=== PATIENT | female | born 1965 | race Caucasian/White ===

== ENCOUNTER 2018-12-26 22:26 | Inpatient (IN) | payer OTHER ==
[~2018-12-26] VITALS: Ht 167.6 cm; Wt 74.3 kg
[2018-12-27 00:30] VITALS: BP 172/84; PULSE 94; RESP 18
[2018-12-27 00:50] VITALS: Ht 167.6 cm; Wt 74.3 kg
[2018-12-27] MEDS ORDERED: NACL 0.9% 3 ML SYG IV SCH (01:00)
[2018-12-27] MEDS ORDERED: ONDANSETRON 4 MG INJ IV PRN (01:00)
--- NOTE | 2018-12-27 01:04 | HP ---
Date/Time of Note Date/Time of Note DATE: 12/27/18 TIME: 00:55 Assessment/Plan VTE Prophylaxis SCD applied (from Nsg): Yes Pharmacological prophylaxis: NA/contraindicated Pharm contraindication: low risk/ambulating Lines/Catheters IV Catheter Type (from Nrsg): Saline Lock Assessment/Plan Assessment/Plan 53 yo woman with dyslipidemia presents with fevers and hyponatremia #Fever #Cough - Likely developed a viral bronchitis - Influenza negative - Blood cultures drawn at [place], will have to call to followup cultures. - CXR without infiltrates. Clinically does not appear to be pneumonia. - Supportive care #Hyponatremia - Likely from high fever causing insensible free water losses - Resume diet, got bolused in ED, recheck BMP in AM #Dental abscess - For now, ordered IV Unasyn - Dental appointment on Wednesday 12/27. DVT: SCDs GI: None HPI/ROS Admit Date/Time Admit Date/Time Dec 27, 2018 at 00:06 Hx of Present Illness Ms. Ortiz is a 53 yo woman with no major PMH transferred here from [place] with fevers. She was in her usual state of health until about a week ago, when she developed bilateral lower jaw toothache. She made an appointment with her dentist for this Thursday 12/28. On Friday (2 days [employer]) she developed fatigue and whole body aches. On Friday s he had subjective fevers at home and cough with scant sputum production. She presented to [place] ED. On arrival she was febrile to 40.2C, tachy to 107, BP 138/87, sat 95% on room air. Labs notable for hyponatremia to 130, no leukocytosis. Influenza negative. CXR negative for infiltrates. ROS She denies recent night sweats, anorexia, weight loss, dyspnea, runny nose, sore throat, dysphagia, chest pain/pressure/palpitations, nausea, vomiting, abdominal pain, diarrhea, constipation, dysuria, hematuria. PMH/Family/Social Past Medical History Dyslipidemia, not taking any medications. Medications Current Medications IV Flush (NS 3 ml) 3 ml PER PROTOCOL IV ; Start 12/27/18 at 01:00; Status UNV Ondansetron HCl (Zofran Inj) 4 mg Q6H PRN IV NAUSEA/VOMITING; Start 12/27/18 at 01:00; Status UNV Acetaminophen (Tylenol Tab) 650 mg Q6H PRN PO .PAIN 1-3 OR TEMP; Start 12/27/18 at 01:00; Status UNV Coded Allergies: No Known Allergy (Unverified , 12/27/18) Past Surgical History Past Surgical Hx: no surgical history Social History Alcohol Use: none Smoking Status: Never smoker Drug Use: none Exam/Review of Systems Exam Exam Gen: Well developed woman awake and alert, uncomfortable appearing. Eyes: PERRL, no icterus HEENT: Moist mucous membranes, clear oropharynx. Left lower molar loose and tender to palpation. No cheek or jaw swelling. Neck: Supple, no lymphadenopathy, no JVD Card: Regular rate and rhythm, no murmur. Pulm: Clear to auscultation bilaterally Abd: Soft, nondistended. Nontender to palpation. No hepatosplenomegaly. Ext: No cyanosis/clubbing/edema, good peripheral pulses. Skin: warm, dry, well perfused. OLGA HOOD MD Dec 27, 2018 01:04
[2018-12-27] MEDS: ACETAMINOPHEN 325 MG TAB PO PRN ×4 (01:15→23:39)
[2018-12-27] MEDS: AMPICILLIN/SULB 3 GM/NS (PMX) 100 ML IVPB SCH ×5 (01:17→23:40)
[2018-12-27 02:00] VITALS: BP 131/60; PULSE 97; RESP 18
[2018-12-27 08:13] VITALS: BP 142/65; PULSE 98; RESP 18
--- NOTE | 2018-12-27 09:29 | PN ---
Date/Time of Note Date/Time of Note DATE: 12/27/18 TIME: 09:27 Assessment/Plan VTE Prophylaxis SCD applied (from Nsg): Yes Pharmacological prophylaxis: heparin Lines/Catheters IV Catheter Type (from Nrsg): Saline Lock Urinary Cath still in place: No Assessment/Plan Problems: (1) Febrile Status: Acute Comment: She is on antibiotics and her fever curve is coming down. Her peak fever was 40 C in the emergency room at [facility]. Trying to get the results of the cultures from them. In the meantime continue treatment Qualifiers: Fever type: due to other condition Qualified Codes: R50.81 - Fever pres enting with conditions classified elsewhere (2) Dental abscess Status: Acute Comment: On aggressive IV antibiotics. Please note I am going to check an echocardiogram just to be safe (3) Hyperlipidemia Status: Chronic Comment: Noted. Qualifiers: Hyperlipidemia type: pure hypercholesterolemia Qualified Codes: E78.00 - Pure hypercholesterolemia, unspecified (4) Abnormal liver function tests Comment: Duration of this is unknown. Wall is most likely just to be due to the infection need to go ahead and check hepatitis serologies as per NIH guidelines Result Diagram: 12/27/187 12/27/187 Results 24hrs Laboratory Tests Test 12/27/18 04:47 White Blood Count 6.8 Red Blood Count 4.16 L Hemoglobin 12.0 Hematocrit 36.1 L Mean Corpuscular Volume 86.8 Mean Corpuscular Hemoglobin 28.8 L Mean Corpuscular Hemoglobin Concent 33.2 Red Cell Distribution Width 12.9 Platelet Count 135 L Mean Platelet Volume 12.2 H Immature Granulocytes % 0.400 Neutrophils % 68.4 Lymphocytes % 23.4 Monocytes % 7.5 Eosinophils % 0.0 Basophils % 0.3 Nucleated Red Blood Cells % 0.0 Immature Granulocytes # 0.030 Neutrophils # 4.6 Lymphocytes # 1.6 Monocytes # 0.5 Eosinophils # 0.0 Basophils # 0.0 Nucleated Red Blood Cells # 0.0 Sodium Level 141 Potassium Level 3.9 Chloride Level 109 Carbon Dioxide Level 26 Anion Gap 6 Blood Urea Nitrogen 10 Creatinine 0.70 Est Glomerular Filtrat Rate mL/min > 60 Glucose Level 121 Calcium Level 8.3 L Phosphorus Level 3.1 Magnesium Level 2.3 Total Bilirubin 0.6 Direct Bilirubin 0.00 Indirect Bilirubin 0.6 Aspartate Amino Transf (AST/SGOT) 60 H Alanine Aminotransferase (ALT/SGPT) 47 Alkaline Phosphatase 123 H Total Protein 6.6 Albumin 3.6 Globulin 3.00 Albumin/Globulin Ratio 1.20 Thyroid Stimulating Hormone (TSH) 0.525 Subjective 24 Hr Interval Summary Free Text/Dictation Patient reports she is feeling poorly, and still has significant lower jaw pain Constitutional: febrile (Fever without shaking chills or drenching sweats) ENT: other (Dental pain) Respiratory: no complaints Cardiovascular: no complaints Gastrointestinal: no complaints Exam/Review of Systems Exam Vitals Vital Signs Date Temp Pulse Resp B/P (MAP) Pulse Ox O2 O2 Flow FiO2 Time Delivery Rate 12/27/18 100.9 09:15 12/27/18 98 18 142/65 92 Room Air 08:13 (90) Intake and Output 12/26/18 12/26/18 12/27/18 1515:00 23:00 07:00 IntakeIntake Total 1000 ml BalanceBalance 1000 ml Exam Ill-appearing female lying in bed Constitutional: alert ENMT: other (Lower jaw dental abscess in the molar) Respiratory: clear to auscultation, normal air movement Cardiovascular: regular rate and rhythm, nl pulses, other (I do not appreciate a murmur, but will check into it) Gastrointestinal: soft, nl liver, spleen, non-tender Results Results 24hrs Laboratory Tests Test 12/27/18 04:47 White Blood Count 6.8 Red Blood Count 4.16 L Hemoglobin 12.0 Hematocrit 36.1 L Mean Corpuscular Volume 86.8 Mean Corpuscular Hemoglobin 28.8 L Mean Corpuscular Hemoglobin Concent 33.2 Red Cell Distribution Width 12.9 Platelet Count 135 L Mean Platelet Volume 12.2 H Immature Granulocytes % 0.400 Neutrophils % 68.4 Lymphocytes % 23.4 Monocytes % 7.5 Eosinophils % 0.0 Basophils % 0.3 Nucleated Red Blood Cells % 0.0 Immature Granulocytes # 0.030 Neutrophils # 4.6 Lymphocytes # 1.6 Monocytes # 0.5 Eosinophils # 0.0 Basophils # 0.0 Nucleated Red Blood Cells # 0.0 Sodium Level 141 Potassium Level 3.9 Chloride Level 109 Carbon Dioxide Level 26 Anion Gap 6 Blood Urea Nitrogen 10 Creatinine 0.70 Est Glomerular Filtrat Rate mL/min > 60 Glucose Level 121 Calcium Level 8.3 L Phosphorus Level 3.1 Magnesium Level 2.3 Total Bilirubin 0.6 Direct Bilirubin 0.00 Indirect Bilirubin 0.6 Aspartate Amino Transf (AST/SGOT) 60 H Alanine Aminotransferase (ALT/SGPT) 47 Alkaline Phosphatase 123 H Total Protein 6.6 Albumin 3.6 Globulin 3.00 Albumin/Globulin Ratio 1.20 Thyroid Stimulating Hormone (TSH) 0.525 Medications Medication Current Medications IV Flush (NS 3 ml) 3 ml PER PROTOCOL IV ; Start 12/27/18 at 01:00 Ondansetron HCl (Zofran Inj) 4 mg Q6H PRN IV NAUSEA/VOMITING; Start 12/27/18 at 01:00 Acetaminophen (Tylenol Tab) 650 mg Q6H PRN PO .PAIN 1-3 OR TEMP Last administered on 12/27/18at 09:15; Admin Dose 650 MG; Start 12/27/18 at 01:00 Ampicillin Sodium/ Sulbactam Sodium 100 ml @ 100 mls/hr Q6 IVPB Last administered on 12/27/18at 06:13; Admin Dose 100 MLS/HR; Start 12/27/18 at 01:00 LATRICE OLMEDO MD Dec 27, 2018 09:29
[2018-12-27 14:48] VITALS: BP 132/69; PULSE 89; RESP 18
[2018-12-27 20:00] VITALS: BP 135/66; PULSE 88; RESP 18
[2018-12-28 00:38] VITALS: BP 138/67; PULSE 94; RESP 18
[2018-12-28 02:00] VITALS: BP 112/62; PULSE 84; RESP 18
[2018-12-28] MEDS: AMPICILLIN/SULB 3 GM/NS (PMX) 100 ML IVPB SCH ×4 (05:16→23:49)
[2018-12-28] MEDS: ACETAMINOPHEN 325 MG TAB PO PRN (06:01)
[2018-12-28 07:50] VITALS: BP 122/59; PULSE 81; RESP 20
--- NOTE | 2018-12-28 12:31 | PN ---
Date/Time of Note Date/Time of Note DATE: 12/28/18 TIME: 12:29 Assessment/Plan VTE Prophylaxis Risk score (from Ns)>0 risk: 1 SCD applied (from Ns): No SCD contraindicated: other Pharmacological prophylaxis: NA/contraindicated Pharm contraindication: low risk/ambulating Lines/Catheters IV [facility] Type [facility]from [facility] Saline Lock Urinary Cath still in place: No Assessment/Plan Hospital Course SUBJECTIVE: Lying in bed. Patient had fevers at night. Still having cough but improved. OBJECTIVE: Vital signs-see below PHYSICAL EXAM: Constitutional: Adequately built,not in acute distress. HEENT: Head atraumatic and normocephalic. Eyes: Extraocular muscles intact. Anicteric sclerae. Pupils equal bilaterally, reactive to light. NECK: Supple without lymph node. CHEST: Clear and good breath sounds equally. No wheezing. No rhonchi. HEART: S1, S2. Regular rate and rhythm. ABDOMEN: Soft/non tender with no rebound tenderness. Bowel sounds were present. EXTREMITIES: No cyanosis, clubbing or edema. NEUROLOGIC: Alert and oriented x3. No focal deficit. No sensory deficit. PSYCHOSOCIAL: No signs of depression. INTEGUMENTARY: No open wounds. ASSESSMENT AND PLAN:53 yo woman with dyslipidemia, dentala abscess presents with fevers/cough.. #Fever/Cough - Likely bronchitis - F/U Blood cultures drawn at [place] - Add Azithromycin 500x3 days -Repeat Xray #Dental abscess - For now,cont. IV Unasyn - pt to reschedule Dental appointment after DC DVT: SCDs GI: None Robi Disposition: Follow-up blood cultures from [facility]. DC planning in a.m. possibly on Augmentin. Patient is seen in collaboration with Dr. Cespedes. Result Diagram: 12/27/1844612/27/18446 Exam/Review of Systems Exam Vitals Vital Signs Date Temp Pulse Resp B/P (MAP) Pulse Ox O2 O2 Flow FiO2 Time Delivery Rate 12/28/18 98.7 81 20 122/59 91 Room Air 07:50 (80) Intake and Output 12/27/18 12/27/18 12/28/18 1515:00 23:00 07:00 IntakeIntake Total 700 ml 340 ml 200 ml BalanceBalance 700 ml 340 ml 200 ml Medications Medication Current Medications IV Flush (NS 3 ml) 3 ml PER PROTOCOL IV ; Start 12/27/18 at 01:00 Ondansetron HCl (Zofran Inj) 4 mg Q6H PRN IV NAUSEA/VOMITING; Start 12/27/18 at 01:00 Acetaminophen (Tylenol Tab) 650 mg Q6H PRN PO .PAIN 1-3 OR TEMP Last administered on 12/28/18at 06:01; Admin Dose 650 MG; Start 12/27/18 at 01:00 Ampicillin Sodium/ Sulbactam Sodium 100 ml @ 100 mls/hr Q6 IVPB Last administered on 12/28/18at 12:00; Admin Dose 100 MLS/HR; Start 12/27/18 at 01:00 DUSTIN AVILA NP Dec 28, 2018 12:31
[2018-12-28] MEDS: AZITHROMYCIN 500 MG TAB PO SCH (13:16)
[2018-12-28] MEDS ORDERED: IBUPROFEN 400 MG TAB PO ONE (13:30)
[2018-12-28] MEDS ORDERED: AZITHROMYCIN 250 MG TAB PO SCH (13:30)
[2018-12-28 14:21] VITALS: BP 134/74; PULSE 94; RESP 20
[2018-12-28] MEDS: IBUPROFEN 400 MG TAB PO PRN (20:48)
[2018-12-28 21:03] VITALS: BP 128/67; PULSE 85; RESP 18
[2018-12-29 02:12] VITALS: BP 116/55; PULSE 80; RESP 18
[2018-12-29] MEDS: IBUPROFEN 400 MG TAB PO PRN (03:26)
[2018-12-29] MEDS: AMPICILLIN/SULB 3 GM/NS (PMX) 100 ML IVPB SCH (05:43)
[2018-12-29 07:47] VITALS: BP 122/71; PULSE 78; RESP 18
[2018-12-29] MEDS: AZITHROMYCIN 500 MG TAB PO SCH (09:16)
--- NOTE | 2018-12-29 10:39 | PN ---
Date/Time of Note Date/Time of Note DATE: 12/29/18 TIME: 10:36 Assessment/Plan VTE Prophylaxis Risk score (from Ns)>0 risk: 1 SCD applied (from Ns): Yes Pharmacological prophylaxis: NA/contraindicated Pharm contraindication: low risk/ambulating Lines/Catheters IV [facility] Type [facility]from [facility] Saline Lock Urinary Cath still in place: No Assessment/Plan Hospital Course SUBJECTIVE: Patient still had low-grade fevers overnight. She received Motrin and Tylenol at night. Having nonproductive cough. OBJECTIVE: Vital signs-see below PHYSICAL EXAM: Constitutional: Adequately built,not in acute distress. HEENT: Head atraumatic and normocephalic. Eyes: Extraocular muscles intact. Anicteric sclerae. Pupils equal bilaterally, reactive to light. NECK: Supple without lymph node. CHEST: Clear and good breath sounds equally. No wheezing. No rhonchi. HEART: S1, S2. Regular rate and rhythm. ABDOMEN: Soft/non tender with no rebound tenderness. Bowel sounds were present. EXTREMITIES: No cyanosis, clubbing or edema. NEUROLOGIC: Alert and oriented x3. No focal deficit. No sensory deficit. PSYCHOSOCIAL: No signs of depression. INTEGUMENTARY: No open wounds. ASSESSMENT AND PLAN:53 yo woman with dyslipidemia, dentala abscess presents with fevers/cough.. #Community-acquired pneumonia -Patient now has clinical and radiographic symptoms suggestive of pneumonia -Currently on Unasyn and azithromycin. I will request ID consult for more appropriate antimicrobial coverage in the setting that patient continued to have fevers and chest x-ray shows developing right-sided pneumonia. -OSH BC ~NGTD #Dental abscess - For now,cont. IV Unasyn - pt to reschedule Dental appointment after DC DVT: SCDs GI: None Robi Disposition: Patient continues to have low-grade fevers at night. X-ray shows developing right-sided pneumonia. At this time, I will keep patient another 24 hours in-house with ID consultation. Patient is seen in collaboration with Dr. Cespedes. Result Diagram: 12/27/1844612/27/18446 Exam/Review of Systems Exam Vitals Vital Signs Date Temp Pulse Resp B/P (MAP) Pulse Ox O2 O2 Flow FiO2 Time Delivery Rate 12/29/18 98.9 78 18 122/71 92 07:47 (88) 12/28/18 Room Air 14:21 Intake and Output 12/28/18 12/28/18 12/29/18 1515:00 23:00 07:00 IntakeIntake Total 460 ml 820 ml 440 ml OutputOutput Total 1 ml BalanceBalance 460 ml 819 ml 440 ml Medications Medication Current Medications IV Flush (NS 3 ml) 3 ml PER PROTOCOL IV ; Start 12/27/18 at 01:00 Ondansetron HCl (Zofran Inj) 4 mg Q6H PRN IV NAUSEA/VOMITING; Start 12/27/18 at 01:00 Acetaminophen (Tylenol Tab) 650 mg Q6H PRN PO .PAIN 1-3 OR TEMP Last administered on 12/28/18at 06:01; Admin Dose 650 MG; Start 12/27/18 at 01:00 Ampicillin Sodium/ Sulbactam Sodium 100 ml @ 100 mls/hr Q6 IVPB Last administered on 12/29/18at 05:43; Admin Dose 100 MLS/HR; Start 12/27/18 at 01:00 Ibuprofen (Motrin) 400 mg Q6H PRN PO MILD PAIN(1-3) OR TEMP>38C Last administered on 12/29/18at 03:26; Admin Dose 400 MG; Start 12/28/18 at 12:30 Azithromycin (Zithromax) 500 mg DAILY PO Last administered on 12/29/18at 09:16; Admin Dose 500 MG; Start 12/28/18 at 13:30; Stop 12/30/18 at 09:01 DUSTIN AVILA NP Dec 29, 2018 10:39
--- NOTE | 2018-12-29 12:01 | CONS ---
Assessment/Plan Assessment/Plan Hospital Course (Demo Recall) 1) pneumonia clinically she is better change unasyn to augmentin and continue for another 6 days continue with oral azithro for a 5 day course I have ordered procalcitonin but even if it is neg I would continue both of these antibiotics since she may have a dental infection 2) teeth pain this is not new augmentin has good coverage for possible dental infection/abscess no LN's are appreciated pt to get follow up with dentistry Consultation Date/Type/Reason Admit Date/Time Dec 27, 2018 at 00:06 Date of Consultation: Dec 29, 2018 Type of Consult ID Date/Time of Note DATE: 12/29/18 TIME: 11:52 Hx of Present Illness pt has been feeling unwell with fevers, cough of whitish phlegm since 12/25 she was seen at [place] and told she did not have pneumonia she has had chills too no muscle aches, joint pains, rashes she has had tooth pain for a long time she states to both sides no sinus drainage she has migrating head pains too no diarrhea, vomiting, dysuria she was exposed to a co-worker who had a cold before she got sick and 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 Past Medical History hyperlipidemia Medications Current Medications IV Flush (NS 3 ml) 3 ml PER PROTOCOL IV ; Start 12/27/18 at 01:00 Ondansetron HCl (Zofran Inj) 4 mg Q6H PRN IV NAUSEA/VOMITING; Start 12/27/18 at 01:00 Acetaminophen (Tylenol Tab) 650 mg Q6H PRN PO .PAIN 1-3 OR TEMP Last administered on 12/28/18at 06:01; Admin Dose 650 MG; Start 12/27/18 at 01:00 Ampicillin Sodium/ Sulbactam Sodium 100 ml @ 100 mls/hr Q6 IVPB Last administered on 12/29/18at 05:43; Admin Dose 100 MLS/HR; Start 12/27/18 at 01:00 Ibuprofen (Motrin) 400 mg Q6H PRN PO MILD PAIN(1-3) OR TEMP>38C Last administered on 12/29/18at 03:26; Admin Dose 400 MG; Start 12/28/18 at 12:30 Azithromycin (Zithromax) 500 mg DAILY PO Last administered on 12/29/18at 09:16; Admin Dose 500 MG; Start 12/28/18 at 13:30; Stop 12/30/18 at 09:01 Allergies: Coded Allergies: No Known Allergy (Unverified , 12/27/18) Past Surgical History Past Surgical Hx: no surgical history Social History Alcohol Use: none Smoking Status: Never smoker Drug Use: none Exam/Review of Systems Exam Vitals Vital Signs Date Temp Pulse Resp B/P (MAP) Pulse Ox O2 O2 Flow FiO2 Time Delivery Rate 12/29/18 98.9 78 18 122/71 92 07:47 (88) 12/28/18 Room Air 14:21 Intake and Output 12/28/18 12/28/18 12/29/18 1515:00 23:00 07:00 IntakeIntake Total 460 ml 820 ml 440 ml OutputOutput Total 1 ml BalanceBalance 460 ml 819 ml 440 ml Constitutional: alert, oriented Eyes: nl conjunctiva ENMT: mucosa pink and moist, other (no swelling of gums around the molars where she has the pain and no LN's) Respiratory: other (R base crackles) Cardiovascular: regular rate and rhythm Gastrointestinal: soft, non-tender Extremities: other (no edema) Neurological: other (non focal) Results Result Diagram: 12/27/1844612/27/18446 Medications Medication Current Medications IV Flush (NS 3 ml) 3 ml PER PROTOCOL IV ; Start 12/27/18 at 01:00 Ondansetron HCl (Zofran Inj) 4 mg Q6H PRN IV NAUSEA/VOMITING; Start 12/27/18 at 01:00 Acetaminophen (Tylenol Tab) 650 mg Q6H PRN PO .PAIN 1-3 OR TEMP Last administered on 12/28/18at 06:01; Admin Dose 650 MG; Start 12/27/18 at 01:00 Ampicillin Sodium/ Sulbactam Sodium 100 ml @ 100 mls/hr Q6 IVPB Last ad ministered on 12/29/18at 05:43; Admin Dose 100 MLS/HR; Start 12/27/18 at 01:00 Ibuprofen (Motrin) 400 mg Q6H PRN PO MILD PAIN(1-3) OR TEMP>38C Last administered on 12/29/18at 03:26; Admin Dose 400 MG; Start 12/28/18 at 12:30 Azithromycin (Zithromax) 500 mg DAILY PO Last administered on 12/29/18at 09:16; A dmin Dose 500 MG; Start 12/28/18 at 13:30; Stop 12/30/18 at 09:01 QUINCY MATIAS MD Dec 29, 2018 12:01
[2018-12-29 14:35] VITALS: BP 139/82; PULSE 81; RESP 18
[2018-12-29 19:23] VITALS: BP 131/71; PULSE 86; RESP 18
[2018-12-29] MEDS: AMOXICILLIN/CLAV 875 MG TAB PO SCH (20:25)
[2018-12-30 01:14] VITALS: BP 131/67; PULSE 84; RESP 18
[2018-12-30] MEDS: IBUPROFEN 400 MG TAB PO PRN (03:10)
[2018-12-30 07:31] VITALS: BP 132/81; PULSE 77; RESP 17
--- NOTE | 2018-12-30 08:11 | CONS ---
Assessment/Plan Assessment/Plan Hospital Course (Demo Recall) 1) pneumonia clinically she is better change unasyn to augmentin and continue for another 6 days continue with oral azithro for a 5 day course I have ordered procalcitonin but even if it is neg I would continue both of these antibiotics since she may have a dental infection 12/30 - procalcitonin was neg continue with azithro thru 01/01 and augmentin thru 01/06, Rx given to the nurse 2) teeth pain this is not new augmentin has good coverage for possible dental infection/abscess no LN's are appreciated pt to get follow up with dentistry 12/30 - pt knows to get dental appointment soon continue with augmentin thru 01/06 Rx given to nurse pain is better Consultation Date/Type/Reason Admit Date/Time Dec 28, 2018 at 05:00 Initial Consult Date 12/29/18 Type of Consult ID Date/Time of Note DATE: 12/30/18 TIME: 08:09 24 HR Interval Summary Free Text/Dictation doing well breathing is ok no N, V, D teeth/head pain is better Exam/Review of Systems Exam Vitals Vital Signs Date Temp Pulse Resp B/P (MAP) Pulse Ox O2 O2 Flow FiO2 Time Delivery Rate 12/30/18 98.6 77 17 132/81 93 Room Air 07:31 (98) Intake and Output 12/29/18 12/29/18 12/30/18 1515:00 23:00 07:00 IntakeIntake Total 1000 ml BalanceBalance 1000 ml Constitutional: alert, oriented ENMT: mucosa pink and moist Respiratory: clear to auscultation Cardiovascular: regular rate and rhythm Gastrointestinal: soft, non-tender Results Result Diagram: 12/27/18 0447 12/27/18 044 Results 24hrs Laboratory Tests Test 12/29/18 11:34 Procalcitonin 0.11 H Medications Medication Current Medications IV Flush (NS 3 ml) 3 ml PER PROTOCOL IV ; Start 12/27/18 at 01:00 Ondansetron HCl (Zofran Inj) 4 mg Q6H PRN IV NAUSEA/VOMITING; Start 12/27/18 at 01:00 Acetaminophen (Tylenol Tab) 650 mg Q6H PRN PO .PAIN 1-3 OR TEMP Last administered on 12/28/18at 06:01; Admin Dose 650 MG; Start 12/27/18 at 01:00 Ibuprofen (Motrin) 400 mg Q6H PRN PO MILD PAIN(1-3) OR TEMP>38C Last administered on 12/30/18at 03:10; Admin Dose 400 MG; Start 12/28/18 at 12:30 Azithromycin (Zithromax) 500 mg DAILY PO Last administered on 12/29/18at 09:16; Admin Dose 500 MG; Start 12/28/18 at 13:30; Stop 01/01/19 at 09:01 Amoxicillin/ Clavulanate Potassium (Augmentin) 875 mg BID PO Last administered on 12/29/18at 20:25; Admin Dose 875 MG; Start 12/29/18 at 21:00 QUINCY MATIAS MD Dec 30, 2018 08:11
[2018-12-30] MEDS: AMOXICILLIN/CLAV 875 MG TAB PO SCH (09:16)
[2018-12-30] MEDS: AZITHROMYCIN 500 MG TAB PO SCH (09:16)
--- NOTE | 2018-12-30 12:47 | PDOCDIS ---
Discharge Instructions CONDITION [id number] Patient Condition: [id number] Stable HOME CARE INSTRUCTIONS: [id number] Diet Instructions: [id number] Regular FOLLOW UP/APPOINTMENTS Follow-up Plan Follow up with primary care physician in 1 week Follow- up with dentist as soon as possible before finishing antibiotics on 01/06/2019. DUSTIN AVILA NP Dec 30, 2018 12:47
[2018-12-30] MEDS ORDERED: AMOX1TAB10 PO (12:48)
[2018-12-30] MEDS ORDERED: AZIT500T5 PO (12:48)
--- NOTE | 2018-12-30 12:54 | DS ---
Date/Time of Note Date/Time of Note DATE: 12/30/18 TIME: 12:51 Discharge Summary Admission/Discharge Info Admit Date/Time Dec 28, 2018 at 05:00 Discharge Date/Time Discharge Diagnosis #Community-acquired pneumonia #Dental abscess.has dentist appointment Patient Condition: Stable Consults ,ID Procedures 12/28/2018: Chest x-ray IMPRESSION: Peribronchial thickening compatible with small airways disease. Right basilar infiltrate concerning for developing pneumonia. RPTAT: AADD Hospital Course 53 yo woman with, teeth pain/possible dental abscess presents with fevers/cough.. Patient was noted with pneumonia. She was given Unasyn and azithromycin for possible dental abscess coverage as well as pneumonia. Patient was being followed by ID specialist. Patient symptoms resolved. She did not have any fu rther fevers or leukocytosis. Patient is cleared for outpatient follow-up with completion of Augmentin/azithromycin coverage. Patient to follow-up with her dentist for which she already has an appointment. Approximately 60 m spent on coordinating the discharge on this patient. Patient was seen in collaboration with Dr. Cespedes. Follow-up Plan Follow up with primary care physician in 1 week Follow- up with dentist as soon as possible before finishing antibiotics on 01/06/2019. Primary Care Provider Not On Staff DUSTIN Santiago NP Dec 30, 2018 12:54
[2018-12-30] MEDS ORDERED: WORK NOTE (14:06)
--- NOTE | 2019-01-04 10:12 | RADRPT ---
Echocardiogram Report Patient Name: Jamilah PETERSnt ID: [id number] : 1965 (53y 4m)Study Date: 12/27/2018 10:12:05 AM Gender: FAccession #: [id number] Tech: Asif Stovall [facility] Location: [id number] Ref.Physician: LATRICE OLMEDO Height(Cm): BSA: Weight(Kg): Quality: AdequateOrder Physician: LATRICE OLMEDO Account #: Procedures: Echocardiographic Report: Transthoracic echocardiogram with complete 2D, M-Mode, and doppler examination. Indications: Fever. Measurements: 2D/M Mode Doppler Measurement Value Normal Range Measurement Value Normal Range LVIDd 2D 3.9 [ 3.8 - 5.2 ] cm AV Peak Rigo 1.5 [ 100.0 - 170.0 ] cm/se c LVIDs 2D 2.6 [ 2.2 - 3.5 ] cm AV Peak PG 9.0 [ 2.0 - 9.0 ] mmHg LVPWd 2D 0.8 [ 0.6 - 0.9 ] cm LVOT Peak Rigo 1.0 [ 70.0 - 110.0 ] cm/sec IVSd 2D 0.9 [ 0.6 - 0.9 ] cm LVOT Peak PG 4.0 [ 2.0 - 6.0 ] mmHg AoR Diam 2D 2.8 [ 2.3 - 3.1 ] cm MV E Peak Rigo 0.9 [ 60.0 - 130.0 ] cm/sec EDV 2D 66.7 [ 46.0 - 106.0 ] ml MV A Peak Rigo 0.6 [ 100.0 - 120.0 ] cm/se c ESV 2D 25.1 [ 14.0 - 42.0 ] ml MV E/A 1.5 [ 0.8 - 1.5 ] ratio EF 2D 62.4 [ 54.0 - 74.0 ] percent MV PHT 54.0 [ 20.0 - 100.0 ] msec LA Dimen 2D 3.3 [ 2.7 - 3.8 ] cm MV Decel Time 185 [ 104 - 258 ] msec MV Decel [place] 5 Lat E` Rigo 0.1 [ 10.0 - 15.0 ] cm/sec Lateral E/E` 6.5 [ 1.0 - 2.0 ] ratio Med E` Rigo 0.1 cm/sec MV E/A 1.5 [ 0.8 - 1.5 ] ratio MVA PHT 4.1 [ 2.0 - 4.0 ] cm2 Findings: Left Ventricle: Normal left ventricular systolic function. Normal left ventricular cavity size. Normal left ventricular wall thickness. Ejection fraction is visually estimated at 60-65 %. Right Ventricle: Normal right ventricular size. Normal right ventricular systolic function. Left Atrium: The left atrium is normal in size. Right Atrium: The right atrium is normal in size. Ventricular septum: Normal/intact ventricular septum. Mitral Valve: Normal appearance of the mitral valve. No mitral valve regurgitation is seen. Aortic Valve: Normal appearance of the aortic valve. No significant aortic stenosis or insufficiency. Tricuspid Valve: Tricuspid valve not well visualized. There is trace tricuspid regurgitation. Pulmonic Valve: Pulmonic valve not well visualized. No evidence of pulmonic regurgitation. Pericardium: Normal pericardium with no significant pericardial effusion. Aorta: Normal aortic root. IVC: Normal size and normal respiratory collapse consistent with normal right atrial pressure. Conclusions: Normal left ventricular systolic function. Normal left ventricular cavity size. Normal left ventricular wall thickness. Ejection fraction is visually estimated at 60-65 %. Normal right ventricular size. Normal right ventricular systolic function. The left atrium is normal in size. The right atrium is normal in size. No significant valvular stenosis or regurgitation seen. Normal pericardium with no significant pericardial effusion. Electronically Signed By: Valentin Pearson 2018-12-29 12:00:27 PDT
== END 2018-12-30 14:40 | disposition home or self-care (01) | DRG 194 ==
LOC: 2NE 12-27 00:06 → INTOOBSV 12-27 00:06 → 2NE 12-27 01:47 → OBSVTOIN 12-28 05:00
PROVIDERS: ADMIT Internal Medicine; ATTEND Internal Medicine
DX: J18.9 Pneumonia, unspecified organism (principal); E87.1 Hypo-osmolality and hyponatremia; K04.7 Periapical abscess without sinus; E78.5 Hyperlipidemia, unspecified
CPT/HCPCS: 71045; 80053; 83735; 84100; 84145; 84443; 85025; 86803; 87340; 93306; 99217; G0378; J0295